=== PATIENT | male | born 1965 | race Caucasian/White ===

== ENCOUNTER 2021-03-15 13:54 | Outpatient (CLI) | payer OTHER | END 2021-03-15 13:55 | disposition home or self-care (01) | LOC: MADRAD 13:54 | DX: M25.562 Pain in left knee (principal) ==

== ENCOUNTER 2022-01-20 22:55 | Emergency (ER) | payer BC, OTHER, SELFPAY | END 2022-01-20 23:56 | disposition short-term general hospital (02) | LOC: MADERS 22:55 | DX: S03.02XA Dislocation of jaw, left side, initial encounter (principal); I10 Essential (primary) hypertension; F17.220 Nicotine dependence, chewing tobacco, uncomplicated; X58.XXXA Exposure to other specified factors, initial encounter; Y93.F9 Activity, other caregiving; Z79.899 Other long term (current) drug therapy | CPT/HCPCS: 70486 ==